=== PATIENT | female | born 1950 | race Caucasian/White ===

== ENCOUNTER 2018-01-10 08:17 | Outpatient (CLI) | payer MEDICARE ==
--- NOTE | 2018-01-10 16:08 | NM ---
NUCLEAR MEDICINE BRAIN IMAGING SCAN: 01/10/18 CLINICAL HISTORY: Parkinson's disease. FINDINGS: There is normal, symmetric uptake at the striatum bilaterally demonstrating symmetric, crescent-shape d focal regions of activity. IMPRESSION: Normal exam. POS: [facility]
== END 2018-01-10 08:18 | disposition home or self-care (01) ==
LOC: NM 08:17
PROVIDERS: ATTEND Psychiatry & Neurology Neurology
DX: G20 Parkinson's disease (principal)
CPT/HCPCS: 78607; A9584

== ENCOUNTER 2018-10-03 07:46 | Outpatient (CLI) | payer MEDICARE ==
[2018-10-03] MEDS ORDERED: Iopamidol 300 61% 100 ML VIAL FS ONE (09:00)
--- NOTE | 2018-10-03 13:56 | CT ---
ABDOMEN CT WITH CONTRAST PELVIC CT WITH CONTRAST: HISTORY: Upper abdominal pain x 1 month. Previous cholecystectomy and hysterectomy. Evaluate for irritable b owel syndrome. COMPARISON: None. FINDINGS: ABDOMEN CT: Lung bases are clear. Heart size is normal. There are coronary calcifications. Visualized aorta alves s a normal caliber. No periaortic fat stranding. Multiple hypodensities in the liver. Too small to characterize. The spleen, pancreas, and adrenal gl ands have appropriate enhancement. No gastrohepatic, retrocrural, or periportal lymphadenopathy. Symmetric enhancement of the kidneys. Bilaterally, no obstructive uropathy. Ventral abdominal wall hernia containing mesenteric fat. No mesenteric mass, lymphadenopathy, free air, or free fluid. Limited evaluation of the alimentary canal by lack of oral contrast. Gastric mucosa, duodenum, and m ultiple normal-caliber small bowel loops are identified. Ileocecal junction is normal. Normal calib er appendix. Scattered fecal material and contrast in a nondistended, nondilated colon. Occasional diverticulum in the left hemicolon. No diverticulitis. CT PELVIS: Surgically absent uterus. No pelvic mass, lymphadenopathy, free air, or free fluid. No lytic or blastic lesions in the osseous structures. IMPRESSION: No evidence of bowel obstruction. POS: [facility]
== END 2018-10-03 07:47 | disposition home or self-care (01) ==
LOC: SCSCT 07:46
PROVIDERS: ATTEND Internal Medicine Gastroenterology
DX: K58.2 Mixed irritable bowel syndrome (principal); R10.12 Left upper quadrant pain
CPT/HCPCS: 74177; Q9967

== ENCOUNTER 2018-11-02 11:37 | Emergency (ER) | payer MEDICARE ==
[2018-11-02] MEDS ORDERED: Fentanyl 100 MCG/2 ML VIAL ONE (13:18)
[2018-11-02] MEDS ORDERED: Dexamethasone 4 mg/ml Vial ONE (13:19)
[2018-11-02] MEDS ORDERED: Ketorolac Tromethamine 30 MG/ML VIAL ONE (13:19)
[2018-11-02] MEDS ORDERED: Lorazepam 2 MG/ML VIAL ONE (13:20)
[2018-11-02] MEDS ORDERED: Ondansetron PF 4 MG/2 ML Vial ONE ×2 (13:40→14:59)
== END 2018-11-02 15:40 | disposition home or self-care (01) ==
LOC: ERS 11:37
DX: G89.29 Other chronic pain (principal); M54.5 Low back pain; Z79.899 Other long term (current) drug therapy
CPT/HCPCS: 96374; 96375; 96376; J1100; J1885; J2060; J2405; J3010

== ENCOUNTER 2018-11-22 12:23 | Outpatient (CLI) | payer MEDICARE ==
--- NOTE | 2018-11-22 14:29 | MRI ---
MRI LUMBAR SPINE: Date: 11/22/18 HISTORY: Bilateral lower extremity weakness. TECHNIQUE: Multiplanar, multisequence noncontrast enhanced MRI lumbar spine obtained. For the purposes of this dictation, the last freely mobile vertebral body will be considered to be th e L5 vertebral body. All other vertebral bodies are numbered according to this. FINDINGS: T12-L1, L1-2, L2-3: Unremarkable. L3-4: There is a minimal broad based disc bulge and minimal facet and ligamentum hypertrophy. No sig nificant degree of central or neural foraminal narrowing seen. L4-5: There is mild disc desiccation seen. There is a minimal broad based disc bulge. Bilateral face t hypertrophy is seen. There is some fluid seen in the left L4-5 facet joint. An annular fissure is s een in the posterior aspect of the annulus fibrosis. No significant degree of central or neural sam inal narrowing seen. L5-S1: There is disc desiccation seen. There is mild Grade I anterolisthesis of L5 on S1 measuring a pproximately 3.7 mm. There is bilateral facet hypertrophy seen. Some disc desiccation is seen. Right- sided Modic Type II changes seen in the inferior end plate of L5 and superior end plate of S1 on the right. Bilateral pars interarticularis defect seen at the pars interarticularis of L5. IMPRESSION: Minimal anterolisthesis of L5 on S1 with right-sided L5-S1 end plate Modic changes. 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 POS: [facility]
== END 2018-11-22 12:24 | disposition home or self-care (01) ==
LOC: SCSMRI 12:23
PROVIDERS: ATTEND Psychiatry & Neurology Neurology
DX: G25.0 Essential tremor (principal); M43.17 Spondylolisthesis, lumbosacral region
CPT/HCPCS: 72148

== ENCOUNTER 2024-01-02 09:29 | Outpatient (CLI) | payer OTHER | END 2024-01-02 09:30 | disposition home or self-care (01) | LOC: BICCT 09:29 | PROVIDERS: ATTEND Physician Assistant Medical | DX: K58.2 Mixed irritable bowel syndrome (principal); R68.81 Early satiety; R14.0 Abdominal distension (gaseous); K76.89 Other specified diseases of liver; K57.90 Diverticulosis of intestine, part unspecified, without perforation or abscess without bleeding; M51.37 Other intervertebral disc degeneration, lumbosacral region; M47.817 Spondylosis without myelopathy or radiculopathy, lumbosacral region; D73.89 Other diseases of spleen; Z86.010 Personal history of colon polyps | CPT/HCPCS: 74177; 82565 ==